=== PATIENT | female | born 1965 | race Caucasian/White ===

== ENCOUNTER 2023-04-25 08:26 | Outpatient (OUT) | payer OTHER, SELFPAY ==
--- NOTE | 2023-04-25 08:34 | MM_ITS ---
Patient: ITALO WOODRUFF Exam Date: 04/25/2023 : 1965 Gender:F Ordering : DR. MIKE BACH D.O. Admission #: [id number] Family : DR Hunterlas Pancho . Order #: [id number] CLICK HERE TO VIEW EXAM RADIOLOGY REPORT PROCEDURE: MM TOMOSYNTHESIS SCREENING BI COMPARISON: MG MAMM SCREEN 3D RIAN CAD, 10/09/2021. INDICATIONS: Screening Calculator Name NCI Breast Cancer Risk Assessment Tool 5 Year Breast Cancer Risk 1.40% Lifetime Breast Cancer Risk 8.90% Personal Breast Cancer No Personal Ovarian Cancer No Treatments None Family Cancers Grandmother-maternal with colon cancer at age 83. LOCATION: [facility] BREAST COMPOSITION: Heterogeneously dense,which may obscure small masses. FINDINGS: DIAGNOSTIC CATEGORY 1--NEGATIVE. RIGHT BREAST: No significant suspicious finding. No significant change has occurred. LEFT BREAST: No significant suspicious finding. No significant change has occurred. RECOMMENDATIONS: ROUTINE MAMMOGRAM AND CLINICAL EVALUATION IN 12 MONTHS. PLEASE NOTE: A NORMAL MAMMOGRAM DOES NOT EXCLUDE THE POSSIBILITY OF BREAST CANCER. A CLINICALLY SUSPICIOUS PALPABLE LUMP SHOULD BE BIOPSIED. Dictated by: Lai Rosen M.D. on 04/25/2023 at 13:18 Approved by: Lai Rosen M.D. on 04/25/2023 at 13:21
== END 2023-04-25 08:27 ==
LOC: MAMMO 08:29
PROVIDERS: PCP Family Medicine; Visit Provider Obstetrics & Gynecology
DX: Z12.31 Encounter for screening mammogram for malignant neoplasm of breast (principal); Z80.0 Family history of malignant neoplasm of digestive organs
CPT/HCPCS: 77063; 77067

== ENCOUNTER 2023-05-28 09:31 | Outpatient (OUT) | payer OTHER, SELFPAY ==
[2023-05-29 07:13] LABS: Estradiol 6.4 pg/mL (.); Progesterone 1.5 ng/mL (.)
[2023-06-01 15:09] LABS: Estrone, Serum 22 pg/mL (.)
== END 2023-05-28 09:32 | disposition home or self-care (01) ==
LOC: LAB 09:31
PROVIDERS: PCP Family Medicine; Visit Provider Family Medicine
DX: R53.82 Chronic fatigue, unspecified (principal); R23.2 Flushing; R61 Generalized hyperhidrosis
CPT/HCPCS: 36415; 82306; 82533; 82627; 82670; 82679; 84144

== ENCOUNTER 2024-12-10 07:14 | Outpatient (OUT) | payer OTHER, SELFPAY ==
[2024-12-10 07:35] LABS: Basophils Absolute Auto 0.1 10^3/uL (0.0-0.1); Basophils Percent Auto 1.1 % (0.2-2.0); Eosinophils Absolute Auto 0.2 10^3/uL (0.0-0.7); Eosinophils Percent Auto 2.6 % (0.9-7.0); Hematocrit 43.8 % (36.0-48.0); Hemoglobin 14.2 g/dL (12.0-16.0); Immature Granulocytes Abs Auto 0.01 10^3/uL (0.00-0.03); Immature Granulocytes Pct Auto 0.2 % (0.0-0.5); Lymphocytes Absolute Auto 1.9 10^3/uL (1.2-3.8); Lymphocytes Percent Auto 32.6 % (20.5-60.0); Mean Corpuscular HGB Conc 32.4 g/dL (29.9-35.2); Mean Corpuscular Hemoglobin 28.5 pg (26.7-34.0); Mean Platelet Volume 9.4 fL (9.5-13.5); Monocytes Absolute Auto 0.3 10^3/uL (0.3-0.8); Monocytes Percent Auto 5.4 % (1.7-12.0); Neutrophils Absolute Auto 3.3 10^3/uL (1.4-6.5); Neutrophils Percent Auto 58.1 % (43.0-75.0); Platelet Count 240 10^3/uL (150-450); Red Blood Count 4.98 10^6/uL (4.20-5.40); Red Cell Distribution Width 12.7 % (11.0-15.0); White Blood Count 5.7 10^3/uL (4.0-11.0)
[2024-12-10 07:58] LABS: Estimated Average Glucose 108 mg/dL; Glycohemoglobin A1C 5.4 % (4.5-6.2)
[2024-12-10 08:33] LABS: Alanine Aminotransferase 27 U/L (14-59); Albumin Globulin Ratio 1.2; Albumin Level 3.9 g/dL (3.4-5.0); Alkaline Phosphatase 58 U/L (46-116); Anion Gap 9.8; Aspartate Amino Transferase 22 U/L (15-37); BUN Creatinine Ratio 13.1; Bilirubin Total 0.8 mg/dL (0.2-1.0); Calcium 8.8 mg/dL (8.5-10.1); Chloride 105 mmol/L (98-107); Chol HDL Ratio 3.6; Cholesterol 237 mg/dL (<=200); Estimated GFR (African America >60 (>=60 mL/min/1.73m^2); Estimated GFR (Non-African Ame >60 (>=60 mL/min/1.73m^2); Free T3 2.24 pg/mL (2.18-3.98); Globulin 3.3 g/dL; Glucose 103 mg/dL (74-106); HDL Cholesterol 65 mg/dL (40-60); Potassium 3.8 mmol/L (3.5-5.1); Sodium 142 mmol/L (136-145); Thyroid Stimulating Hormone 2.066 uIU/mL (0.358-3.740); Total Protein 7.2 g/dL (6.4-8.2); Triglycerides 93 mg/dL (<=150); VLDL CHOLESTEROL 18.6 mg/dL
[2024-12-11 04:07] LABS: Vitamin B12 737 pg/mL (232-1245)
[2024-12-11 07:07] LABS: Insulin 11.5 uIU/mL (2.6-24.9)
== END 2024-12-10 07:15 | disposition home or self-care (01) ==
LOC: LAB 07:15
PROVIDERS: PCP Family Medicine; Visit Provider Family Medicine
DX: Z00.00 Encounter for general adult medical examination without abnormal findings (principal); Z12.31 Encounter for screening mammogram for malignant neoplasm of breast; R53.83 Other fatigue
CPT/HCPCS: 36415; 77063; 77067; 80053; 80061; 82306; 82607; 82746; 83036; 83525; 83540; 84436; 84443; 84481; 85025

== ENCOUNTER 2024-12-10 07:17 | Outpatient (OUT) | payer OTHER, SELFPAY ==
--- NOTE | 2024-12-10 07:29 | MM_ITS ---
Patient Name: ITALO WOODRUFF MR#: [id number] : 1965 Exam Date: 12/10/2024 Ordering Doctor: DR. MIKE BACH D.O. RADIOLOGY REPORT PROCEDURE: MM TOMOSYNTHESIS SCREENING BI COMPARISON: MM TOMOSYNTHESIS SCREENING BI, 04/25/2023. MG MAMM SCREEN 3D RIAN CAD, 10/09/2021. MG MAMM SCREEN RIAN W CAD, 09/05/2020. MG MAMM RIAN SCRN W CAD DIG, 04/09/2014. INDICATIONS: Screening Calculator Name NCI Breast Cancer Risk Assessment Tool 5 Year Breast Cancer Risk 1.50% Lifetime Breast Cancer Risk 8.50% Personal Breast Cancer No Personal Ovarian Cancer No Treatments None Family Cancers Grandmother-maternal with colon cancer at age 83. LOCATION: [facility] BREAST COMPOSITION: The breasts are heterogeneously dense,which may obscure small masses. FINDINGS: DIAGNOSTIC CATEGORY 1--NEGATIVE. RIGHT BREAST: No significant suspicious finding. No significant change has occurred. LEFT BREAST: No significant suspicious finding. No significant change has occurred. RECOMMENDATIONS: ROUTINE MAMMOGRAM AND CLINICAL EVALUATION IN 12 MONTHS. PLEASE NOTE: A NORMAL MAMMOGRAM DOES NOT EXCLUDE THE POSSIBILITY OF BREAST CANCER. A CLINICALLY SUSPICIOUS PALPABLE LUMP SHOULD BE BIOPSIED. Dictated by: Lai Rosen M.D. on 12/11/2024 at 15:27 Approved by: Lai Rosen M.D. on 12/11/2024 at 15:29
== END 2024-12-10 07:18 | disposition home or self-care (01) ==
LOC: MAMMO 07:17
PROVIDERS: PCP Family Medicine; Visit Provider Obstetrics & Gynecology
DX: Z12.31 Encounter for screening mammogram for malignant neoplasm of breast (principal); Z80.0 Family history of malignant neoplasm of digestive organs
CPT/HCPCS: 77063; 77067